=== PATIENT | female | born 1980 | race Two or more races ===

== ENCOUNTER 2021-04-21 05:48 | Inpatient (IN) | payer SELFPAY ==
[~2021-04-21] VITALS: Ht 152.4 cm; Wt 70.2 kg
[2021-04-21] MEDS ORDERED: IV NORMAL SALINE 1000ML BAG 1,000 ML IV ONE (06:15)
[2021-04-21] MEDS ORDERED: ACETAMINOPHEN 500 MG TABLET PO ONE (06:15)
--- NOTE | 2021-04-21 06:41 | ED.ADGEN ---
General Adult EDM: Chief Complaint: ABDOMINAL PAIN HPI: HPI: Patient is a 40 year old female presenting via EMS for right lower quadrant abdominal pain. Patient states she has been having pain for 2 days as well as subjective fevers at home, has not checked temperature. Has had some nausea but no vomiting. Denies any diarrhea. Patient normally has to self cath 3 times a day denies any hematuria or dysuria. Patient is Vietnamese-speaking and with safety attendant line is unclear what her surgical history is. Review of Systems: Review of Systems: All other systems within normal limits except for as noted in the HPI Current Medications: Current Medications Medications (Trade) Dose Ordered Sig/Maura Start Time Stop Time Status Last Admin Dose Admin Acetaminophen (Tylenol) 650 mg PRN Q4HRS PRN 04/21/21 09:30 04/22/21 09:29 Ceftriaxone Sodium (Rocephin) 1 gm 1X ONCE 04/21/21 08:15 04/21/21 08:16 DC 04/21/21 08:20 1 GM Fentanyl Citrate (Fentanyl 2ml Vial) 50 mcg PRN Q1HR PRN 04/21/21 09:30 04/22/21 09:29 Info (CONTRAST GIVEN -- Rx MONITORING) 1 each PRN DAILY PRN 04/21/21 07:30 04/23/21 07:29 Iohexol (Omnipaque 300 Mg/ml) 75 ml 1X ONCE 04/21/21 07:30 04/21/21 07:31 DC 04/21/21 07:38 75 ML Sodium Chloride 1,000 ml @ 100 mls/hr Q10H 04/21/21 09:30 04/22/21 09:29 Allergies: Allergies: Allergies Coded Allergies Type Severity Reaction Last Updated Verified No Known Drug Allergies 04/21/21 No Physical Exam: PE: Constitutional: Well developed, well nourished, no acute distress, non-toxic appearance. [] HENT: Normocephalic, atraumatic, bilateral external ears normal, nose normal. [] Eyes: PERRLA, conjunctiva normal, no discharge. [] Neck: No rigidity, supple, no stridor. [] Cardiovascular: Regular rate and rhythm, brisk cap refill [] Lungs & Thorax: Non labored symmetric respirations, no tachypnea or respiratory distress [] Abdomen: Soft, nondistended, right lower quadrant abdominal tenderness. Skin: Warm, dry, no erythema, no rash. [] Back: Unremarkable Extremities: No deformities, range of motion grossly intact, no lower extremity edema [] Neurologic: Alert and oriented X 3, no focal deficits noted. [] Psychologic: Affect normal, judgement normal, mood normal. [] Current Patient Data: Labs: Laboratory Tests Test 04/21/21 06:35 04/21/21 06:57 04/21/21 07:00 White Blood Count 19.7 x10^3/uL (4.0-11.0) H Red Blood Count 3.98 x10^6/uL (3.50-5.40) Hemoglobin 11.8 g/dL (12.0-15.5) L Hematocrit 34.7 % (36.0-47.0) L Mean Corpuscular Volume 87 fL (79-100) Mean Corpuscular Hemoglobin 30 pg (25-35) Mean Corpuscular Hemoglobin Concent 34 g/dL (31-37) Red Cell Distribution Width 13.1 % (11.5-14.5) Platelet Count 194 x10^3/uL (140-400) Neutrophils (%) (Auto) 84 % (31-73) H Lymphocytes (%) (Auto) 6 % (24-48) L Monocytes (%) (Auto) 10 % (0-9) H Eosinophils (%) (Auto) 0 % (0-3) Basophils (%) (Auto) 0 % (0-3) Neutrophils # (Auto) 16.5 x10^3/uL (1.8-7.7) H Lymphocytes # (Auto) 1.2 x10^3/uL (1.0-4.8) Monocytes # (Auto) 1.9 x10^3/uL (0.0-1.1) H Eosinophils # (Auto) 0.0 x10^3/uL (0.0-0.7) Basophils # (Auto) 0.0 x10^3/uL (0.0-0.2) Segmented Neutrophils % 88 % (35-66) H Lymphocytes % 7 % (24-48) L Monocytes % 5 % (0-10) Dohle Bodies Few Platelet Estimate Adequate (ADEQUATE) Polychromasia Slight Sodium Level 135 mmol/L (136-145) L Potassium Level 3.8 mmol/L (3.5-5.1) Chloride Level 100 mmol/L (98-107) Carbon Dioxide Level 26 mmol/L (21-32) Anion Gap 9 (6-14) Blood Urea Nitrogen 8 mg/dL (7-20) Creatinine 0.9 mg/dL (0.6-1.0) Estimated GFR (Cockcroft-Gault) 69.3 BUN/Creatinine Ratio 9 (6-20) Glucose Level 136 mg/dL (70-99) H Lactic Acid Level 1.1 mmol/L (0.4-2.0) Calcium Level 8.5 mg/dL (8.5-10.1) Phosphorus Level 2.1 mg/dL (2.6-4.7) L Magnesium Level 2.0 mg/dL (1.8-2.4) Total Bilirubin 0.9 mg/dL (0.2-1.0) Aspartate Amino Transferase (AST) 21 U/L (15-37) Alanine Aminotransferase (ALT) 60 U/L (14-59) H Alkaline Phosphatase 71 U/L (46-116) Total Protein 8.0 g/dL (6.4-8.2) Albumin 3.3 g/dL (3.4-5.0) L Albumin/Globulin Ratio 0.7 (1.0-1.7) L Lipase 80 U/L (73-393) Urine Collection Type U cath Urine Color Yellow Urine Clarity Turbid Urine pH 7.5 (<5.0-8.0) Urine Specific [place] 1.015 (1.000-1.030) Urine Protein 100 mg/dL (NEG-TRACE) Urine Glucose (UA) Negative mg/dL (NEG) Urine Ketones (Stick) Negative mg/dL (NEG) Urine Blood Negative (NEG) Urine Nitrite Negative (NEG) Urine Bilirubin Negative (NEG) Urine Urobilinogen Dipstick 0.2 mg/dL (0.2 mg/dL) Urine Leukocyte Esterase Large (NEG) Urine RBC Occ /HPF (0-2) Urine WBC >40 /HPF (0-4) Urine Squamous Epithelial Cells Many /LPF Urine Amorphous Sediment Present /HPF Urine Bacteria Many /HPF (0-FEW) Urine Mucus Slight /LPF POC Urine HCG, Qualitative Hcg negative (Negative) Laboratory Tests 04/21/21 06:35 Laboratory Tests 04/21/21 06:35 Vital Signs: Vital Signs Date Time Temp Pulse Resp B/P (MAP) Pulse Ox O2 Delivery O2 Flow Rate FiO2 04/21/21 05:58 102.3 114 18 115/57 96 Room Air 102.3 EKG: EKG: [] Heart Score: C/O Chest Pain: No Risk Factors: Risk Factors: DM, Current or recent (<one month) smoker, HTN, HLP, family history of CAD, obesity. Risk Scores: Score 0 - 3: 2.5% MACE over next 6 weeks - Discharge Home Score 4 - 6: 20.3% MACE over next 6 weeks - Admit for Clinical Observation Score 7 - 10: 72.7% MACE over next 6 weeks - Early Invasive Strategies Radiology/Procedures: Radiology/Procedures: [][facility] [address] [place] [address] IMAGING REPORT Signed PATIENT: HYACINTH SMITH ACCOUNT: [id number] : 1980 LOCATION: ER AGE: 40 SEX: F EXAM STATUS: REG ER ORD. PHYSICIAN: TERESA SEBASTIAN MD REASON: RLQ pain PROCEDURE: CT ABD PELV W/ IV CONTRST ONLY EXAMINATION: CT abdomen and pelvis with IV contrast. INDICATION:40 years, Female, right lower quadrant abdominal pain. TECHNIQUE: Axial CT images of the abdomen and pelvis were obtained. Coronal and sagittal reformatted performed. COMPARISON: None. Exposure: One or more of the following individualized dose reduction techniques were utilized for this examination: 1. Automated exposure control 2. Adjustment of the mA and/or kV according to patient size 3. Use of iterative reconstruction technique. FINDINGS: LOWER CHEST: Unremarkable ABDOMEN/PELVIS: Diffuse hepatic steatosis. No suspicious focal hepatic lesion. Unremarkable spleen, pancreas, gallbladder and biliary ducts. No adrenal nodule. Left kidney is absent. Heterogeneous enhancement of the lower pole right kidney with prominent pelvicalyceal system and ureter to the level of right lower q uadrant where surgical clips present. There is a diffuse thickened enhanced urothelia of the right renal pelvis and ureter with significant perinephric and periureteric fat stranding. No obstructing calculus identified. Diffuse thickened trabeculated urinary bladder wall with multiple diverticula. Normal- appearing uterus is not identified. There is a large cystic structure seen in the expected location of the uterus containing 2 large stones measuring up to 4.0 cm. No significant perivesicular fat stranding. No bowel dilatation or wall thickening. Borderline thickened appendix with hyperenhancing mucosa, measures up to 6 mm. Mesenteric arteries and portal vein are patent. No pneumoperitoneum or ascites. No lymphadenopathy in the abdomen or pelvis by size criteria. Uterus is not visualized. MUSCULOSKELETAL: No acute osseous process. IMPRESSION: 1. Acute uncomplicated right pyelonephritis and ureteritis; prominent pelvicalyceal system and ureter to the level of right lower quadrant where surgical clips present, without obstructing calculus. Correlation with urinalysis is recommended. 6 2. Thickened trabeculated urinary bladder wall with multiple diverticula. 3. Normal-appearing uterus is not visualized. There is a large cystic structure seen in the expected location of the uterus containing 2 large stones measuring up to 4.0 cm. Findings favor bladder diverticulum versus less likely fluid- filled distended endometrium with uterine distortion. 4. Left kidney is absent. 5. Borderline thickened appendix with hyperenhancing mucosa, favors reactive etiology versus less likely acute appendicitis. Clinical correlation is advised. 6. Diffuse hepatic steatosis. Electronically signed by: Gordon Almaguer MD (04/21/2021 8:03 AM) [facility] DICTATED and SIGNED BY: GORDON ALMAGUER MD DATE: 04/21/21 [id number] 0 Course & Med Decision Making: Course & Med Decision Making Discussed with hospitalist, okay to admit for pyelonephritis and solitary kidney. No obstructing calculi. Discussed with radiologist, inflammation of the appendix is likely reactive, but patient does have pain in the right lower quadrant. Dragon Disclaimer: Dragon Disclaimer: This electronic medical record was generated, in whole or in part, using a voice recognition dictation system. Departure Departure Impression: Primary Impression: Pyelonephritis Disposition: ADMITTED INPATIENT Admitting [facility] Condition: STABLE TERESA SEBASTIAN MD Apr 21, 2021 06:41
[2021-04-21 06:56] LABS: BASO % 0 % (0-3); EOS % 0 % (0-3); HEMATOCRIT 34.7 % (36.0-47.0); HEMOGLOBIN 11.8 g/dL (12.0-15.5); LYMPH # 1.2 x10^3/uL (1.0-4.8); LYMPH % 6 % (24-48); MEAN CORPUSCULAR HEMOGLOBIN 30 pg (25-35); MEAN CORPUSCULAR HGB CONC 34 g/dL (31-37); MEAN CORPUSCULAR VOLUME 87 fL (79-100); MONO # 1.9 x10^3/uL (0.0-1.1); MONO % 10 % (0-9); NEUT # 16.5 x10^3/uL (1.8-7.7); NEUT % 84 % (31-73); PLATELET COUNT 194 x10^3/uL (140-400); RED BLOOD COUNT 3.98 x10^6/uL (3.50-5.40); RED CELL DISTRIBUTION WIDTH 13.1 % (11.5-14.5); WHITE BLOOD COUNT 19.7 x10^3/uL (4.0-11.0)
[2021-04-21 07:09] LABS: CALCIUM 8.5 mg/dL (8.5-10.1); CREATININE 0.9 mg/dL (0.6-1.0); GFR 69.3; POTASSIUM 3.8 mmol/L (3.5-5.1)
[2021-04-21 07:18] LABS: BILIRUBIN,URINE NEGATIVE (NEG); CLARITY,URINE TURBID; COLOR,URINE YELLOW; NITRITE,URINE NEGATIVE (NEG); PH,URINE 7.5 (<5.0-8.0); PROTEIN,URINE 100 mg/dL (NEG-TRACE); UROBILINOGEN,URINE 0.2 mg/dL (0.2 mg/dL)
[2021-04-21 07:25] LABS: ALBUMIN 3.3 g/dL (3.4-5.0); ALBUMIN/GLOBULIN RATIO 0.7 (1.0-1.7); PHOSPHORUS 2.1 mg/dL (2.6-4.7); TOTAL BILIRUBIN 0.9 mg/dL (0.2-1.0)
[2021-04-21] MEDS ORDERED: CONTRAST GIVEN. MC PRN (07:30)
[2021-04-21] MEDS ORDERED: IOHEXOL 300 MG/ML 100ML VIAL. IV ONE (07:30)
[2021-04-21 07:47] LABS: BACTERIA,URINE MANY /HPF (0-FEW); RBC,URINE OCC /HPF (0-2); WBC,URINE >40 /HPF (0-4)
[2021-04-21 07:48] LABS: AMORPHOUS SEDIMENT,UR PRESENT /HPF
--- NOTE | 2021-04-21 08:06 | RAD ---
EXAMINATION: CT abdomen and pelvis with IV contrast. INDICATION:40 years, Female, right lower quadrant abdominal pain. TECHNIQUE: Axial CT images of the abdomen and pelvis were obtained. Coronal and sagittal reformatted performed. COMPARISON: None. Exposure: One or more of the following individualized dose reduction techniques were utilized for thi s examination: 1. Automated exposure control 2. Adjustment of the mA and/or kV according to patient size 3. Use of iterative reconstruction technique. FINDINGS: LOWER CHEST: Unremarkable ABDOMEN/PELVIS: Diffuse hepatic steatosis. No suspicious focal hepatic lesion. Unremarkable spleen, pancreas, gallbla dder and biliary ducts. No adrenal nodule. Left kidney is absent. Heterogeneous enhancement of the lower pole right kidney with prominent pelvic alyceal system and ureter to the level of right lower quadrant where surgical clips present. There is a diffuse thickened enhanced urothelia of the right renal pelvis and ureter with significant perinep hric and periureteric fat stranding. No obstructing calculus identified. Diffuse thickened trabeculat ed urinary bladder wall with multiple diverticula. Normal-appearing uterus is not identified. There i s a large cystic structure seen in the expected location of the uterus containing 2 large stones norma uring up to 4.0 cm. No significant perivesicular fat stranding. No bowel dilatation or wall thickening. Borderline thickened appendix with hyperenhancing mucosa, hussain sures up to 6 mm. Mesenteric arteries and portal vein are patent. No pneumoperitoneum or ascites. No lymphadenopathy in the abdomen or pelvis by size criteria. Uterus is not visualized. MUSCULOSKELETAL: No acute osseous process. IMPRESSION: 1. Acute uncomplicated right pyelonephritis and ureteritis; prominent pelvicalyceal system and ureter to the level of right lower quadrant where surgical clips present, without obstructing calculus. Cor relation with urinalysis is recommended. 6 2. Thickened trabeculated urinary bladder wall with multiple diverticula. 3. Normal-appearing uterus is not visualized. There is a large cystic structure seen in the expected location of the uterus containing 2 large stones measuring up to 4.0 cm. Findings favor bladder diver ticulum versus less likely fluid-filled distended endometrium with uterine distortion. 4. Left kidney is absent. 5. Borderline thickened appendix with hyperenhancing mucosa, favors reactive etiology versus less lik eber acute appendicitis. Clinical correlation is advised. 6. Diffuse hepatic steatosis. Electronically signed by: Letty Almaguer MD (04/21/2021 8:03 AM) [facility] [place]
[2021-04-21] MEDS ORDERED: cefTRIAXone IV Push 1 GM VIAL. IVP ONE (08:15)
[2021-04-21 09:16] LABS: % LYMPHS 7 % (24-48); % MONOS 5 % (0-10); % SEGS 88 % (35-66); PLT ESTIMATE ADEQUATE (ADEQUATE)
[2021-04-21 09:17] LABS: POLYCHROMASIA SLIGHT
[2021-04-21] MEDS: fentaNYL PF VIAL 100 MCG/2 ML VIAL IVP PRN ×3 (10:48→19:28)
[2021-04-21] MEDS: IV NORMAL SALINE 1000ML BAG 1,000 ML IV SCH ×2 (10:49→19:30)
[2021-04-21] MEDS: ACETAMINOPHEN 325 MG TABLET. PO PRN ×2 (13:22→19:28)
[2021-04-21] MEDS: ONDANSETRON PF 4 MG/2 ML VIAL. IVP PRN (13:22)
--- NOTE | 2021-04-21 13:42 | HP ---
ADMIT DATE: 04/21/2021 CHIEF COMPLAINT: Abdominal pain. HISTORY OF PRESENT ILLNESS: The patient is a pleasant 40-year-old female who presented to the ER today with abdominal pain. She came in by EMS. She rates her symptoms at 9/10 that has been occurring for several days. She took some [id number] medicines, but that did not help. While in the ER, we noticed that she has got pyelonephritis. She also has 1 kidney and some abnormal imaging on her bladder/uterus. It appears that she has got diverticula. She also states she self-catheterizes herself. The patient has been admitted for further evaluation. PAST MEDICAL HISTORY: Dystonic bladder, UTIs. She has 1 kidney, I am not sure if it was surgically resected or if this was congenital. ALLERGIES: None. FAMILY HISTORY: Noncontributory. SOCIAL HISTORY: She does not drink, smoke or take drugs. MEDICATIONS: Reviewed, please refer to the MRAD. REVIEW OF SYSTEMS: GENERAL: No history of weight change, weakness or fevers. SKIN: No bruising, hair changes or rashes. EYES: No blurred, double or loss of vision. NOSE AND THROAT: No history of nosebleeds, hoarseness or sore throat. HEART: No history of palpitations, chest pain or shortness of breath on exertion. LUNGS: Denies cough, hemoptysis, wheezing or shortness of breath. GASTROINTESTINAL: She complains of abdominal pain. GENITOURINARY: No history of frequency, urgency, hesitancy or nocturia. NEUROLOGIC: Denies history of numbness, tingling, tremor or weakness. PSYCHIATRIC: No history of panic, anxiety or depression. ENDOCRINE: No history of heat or cold intolerance, polyuria or polydipsia. EXTREMITIES: Denies muscle weakness, joint pain, pain on walking or stiffness. PHYSICAL EXAMINATION: VITALS: Within normal limits and are stable. GENERAL: No apparent distress. Alert and oriented. HEENT: Normal cephalic atraumatic, external auditory canals are patent. Eyes: Extraocular muscles are intact, pupils are equally round and reactive to light and accommodation. MUSCULOSKELETAL: Well developed, well nourished, good range of motion. ENDOCRINE: No thyromegaly was palpated. LYMPHATICS: No cervical chain or axillary nodes were noted. HEMATOPOIETIC: No bruising. NECK: Supple, no JVD, no thyromegaly was noted. LUNGS: Clear to auscultation in all lung paulino without rhonchi or wheezing. HEART: RRR, S1, S2 present. Peripheral pulses intact, no obvious murmurs were noted. ABDOMEN: Soft, nontender. Positive bowel sounds no organomegaly, normal bowel sounds. EXTREMITIES: Without any cyanosis, clubbing, or edema. Pedal pulses intact, Homans sign is negative. NEUROLOGIC: Normal speech, normal tone. A and O x 3, moves all extremities, no obvious focal deficits. PSYCHIATRIC: Normal affect, normal mood. Stable. SKIN: No ulcerations or rashes, good skin turgor, no jaundice. VASCULAR: Good capillary refill, neurovascular bundle appears to be intact. LABORATORY DATA: White count is 20. Electrolytes normal other than a sodium of 135. Glucose is 136. CT of the abdomen shows pyelonephritis and urethritis. There are also some surgical clips present. Thickened trabeculated urinary bladder with multiple diverticula. Large cystic structure in the location of the uterus with 2 large stones. Left kidney absent. Borderline thickened appendix. Hepatic steatosis. ASSESSMENT AND PLAN: Pyelonephritis and abnormal imaging of the abdomen. The patient will be admitted. We will give her IV antibiotics, IV fluids, home meds. DVT prophylaxis. Full code. Trend labs. If she does not improve in a day or 2, we will make further diagnostic and therapeutic recommendations. KAREN/MARTIN DR: Juan J TID: [id number]
--- NOTE | 2021-04-21 19:15 | NUR ---
Patient requested friend stay the night to be able to translate for her. NS notified and approved.
[2021-04-21 19:30] VITALS: BP 135/63
[2021-04-21 21:53] VITALS: BP 135/63
[2021-04-21 23:00] VITALS: BP 95/58
[2021-04-21] MEDS ORDERED: ACET325T9 PO (23:16)
[2021-04-22] VITALS (8 sets, daily range): BP systolic 97–156; BP diastolic 51–72
[2021-04-22] MEDS: IV NORMAL SALINE 1000ML BAG 1,000 ML IV SCH ×4 (00:15→14:58)
--- NOTE | 2021-04-22 04:28 | NUR ---
Patient vitals changed, sepsis screen reevaluated and triggered. Call to ICU and spoke with Gordy Higginbotham RN. Lactic acid and Blood cultures x 2 ordered per protocol
[2021-04-22] MEDS: ACETAMINOPHEN 325 MG TABLET. PO PRN ×3 (04:42→21:02)
[2021-04-22 05:05] LABS: BASO % 0 % (0-3); EOS % 0 % (0-3); HEMATOCRIT 32.1 % (36.0-47.0); HEMOGLOBIN 10.9 g/dL (12.0-15.5); LYMPH # 1.2 x10^3/uL (1.0-4.8); LYMPH % 10 % (24-48); MEAN CORPUSCULAR HEMOGLOBIN 30 pg (25-35); MEAN CORPUSCULAR HGB CONC 34 g/dL (31-37); MEAN CORPUSCULAR VOLUME 88 fL (79-100); MONO # 1.2 x10^3/uL (0.0-1.1); MONO % 10 % (0-9); NEUT # 9.8 x10^3/uL (1.8-7.7); NEUT % 80 % (31-73); PLATELET COUNT 182 x10^3/uL (140-400); RED BLOOD COUNT 3.66 x10^6/uL (3.50-5.40); RED CELL DISTRIBUTION WIDTH 13.3 % (11.5-14.5); WHITE BLOOD COUNT 12.3 x10^3/uL (4.0-11.0)
[2021-04-22 06:22] LABS: CALCIUM 8.5 mg/dL (8.5-10.1); CREATININE 0.8 mg/dL (0.6-1.0); GFR 79.4; POTASSIUM 3.9 mmol/L (3.5-5.1)
--- NOTE | 2021-04-22 08:53 | PDOC2 ---
ALYSSA CLARK CASTING ASSOCIATE 04/22/21 0853: CONSULT Date of Consult Date of Consult DATE: 04/22/21 TIME: 08:42 Reason for Consult Reason for Consult: rule out appendicitis Referring Physician Referring Physician: ER Identification/Chief Complaint Chief Complaint abdominal pain Source Source: Chart review, Patient History of Present Illness Reason for Visit: abdominal pain, chills, fevers since monday. congential defect, one kidney, nerve issues, has been straight cath self for many years. Denies frequent UTI. 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 Past Surgical History Past Surgical History: Hysterectomy Family History Family History: Other (noncontributory to current illness ) Social History No ALCOHOL: rare Drugs: None Lives: Alone Current Problem List Problem List Problems Medical Problems: (1) Pyelonephritis Status: Acute Current Medications Current Medications Current Medications Sodium Chloride 1,000 ml @ 1,000 mls/hr 1X ONCE IV Last administered on 04/21/21at 07:40; Start 04/21/21 at 06:15; Stop 04/21/21 at 07:22; Status DC Acetaminophen (Tylenol) 1,000 mg 1X ONCE PO Last administered on 04/21/21at 07:39; Start 04/21/21 at 06:15; Stop 04/21/21 at 07:22; Status DC Iohexol (Omnipaque 300 Mg/ml) 75 ml 1X ONCE IV Last administered on 04/21/21at 07:38; Start 04/21/21 at 07:30; Stop 04/21/21 at 07:31; Status DC Info (CONTRAST GIVEN -- Rx MONITORING) 1 each PRN DAILY PRN MC SEE COMMENTS; Start 04/21/21 at 07:30; Stop 04/23/21 at 07:29 Ceftriaxone Sodium (Rocephin) 1 gm 1X ONCE IVP Last administered on 04/21/21at 08:20; Start 04/21/21 at 08:15; Stop 04/21/21 at 08:16; Status DC Fentanyl Citrate (Fentanyl 2ml Vial) 50 mcg PRN Q1HR PRN IVP PAIN Last administered on 04/21/21at 19:28; Start 04/21/21 at 09:30; Stop 04/22/21 at 09:29 Sodium Chloride 1,000 ml @ 100 mls/hr Q10H IV Last administered on 04/21/21at 10:49; Start 04/21/21 at 09:30; Stop 04/22/21 at 09:29 Acetaminophen (Tylenol) 650 mg PRN Q4HRS PRN PO FEVER > 100.3'F Last administered on 04/22/21at 04:42; Start 04/21/21 at 09:30; Stop 04/22/21 at 09:29 Ceftriaxone Sodium (Rocephin) 1 gm Q24H IVP ; Start 04/22/21 at 09:00 Sodium Chloride 1,000 ml @ 75 mls/hr [id number] IV Last administered on 04/22/21at 00:15; Start 04/21/21 at 12:00 Ondansetron HCl (Zofran) 4 mg PRN Q8HRS PRN IVP NAUSEA/VOMITING Last administered on 04/21/21at 13:22; Start 04/21/21 at 13:15 Active Scripts Active Reported Tylenol (Acetaminophen) 325 Mg Tablet 1-2 Tab PO QID Allergies Allergies: Coded Allergies: No Known Drug Allergies (Unverified , 04/21/21) ROS General: YES: Chills, Fatigue PSYCHOLOGICAL ROS: No: Anxiety, Depression Eyes: No Blurry vision, No Double vision HEENT: No: Heacaches, Sore Throat Hematological and Lymphatic: No: Bleeding Problems, Blood Clots Respiratory: No: Cough, Shortness of breath Cardiovascular: No Chest Pain, No Palpitations Gastrointestinal: No Nausea, No Vomiting Genitourinary: YES Other (st cath tid ); No Hematuria Musculoskeletal: No Joint Pain, No Muscle Pain Neurological: No Impaired Coord/balance, No Numbness/Tingling Skin: No Pruritus, No Rash Physical Exam General: Alert, Oriented X3, Cooperative HEENT: Atraumatic, PERRLA Lungs: Clear to auscultation, Normal air movement Heart: Normal S1, Normal S2, Other (tachy) Abdomen: Soft, Other (TTP RLQ) Extremities: No clubbing, No cyanosis Skin: No rashes, No breakdown Neuro: Normal gait, Normal speech Psych/Mental Status: Mental status NL, Mood NL MUSCULOSKELETAL: No deformity, No swelling Vitals VITALS Vital Signs Date Time Temp Pulse Resp B/P (MAP) Pulse Ox O2 Delivery O2 Flow Rate FiO2 04/22/21 03:45 103.1 92 16 130/71 (90) 92 Room Air 103.1 Labs Labs Laboratory Tests Test 04/21/21 06:35 04/21/21 06:57 04/21/21 07:00 04/22/21 04:50 White Blood Count 19.7 x10^3/uL (4.0-11.0) 12.3 x10^3/uL (4.0-11.0) Red Blood Count 3.98 x10^6/uL (3.50-5.40) 3.66 x10^6/uL (3.50-5.40) Hemoglobin 11.8 g/dL (12.0-15.5) 10.9 g/dL (12.0-15.5) Hematocrit 34.7 % (36.0-47.0) 32.1 % (36.0-47.0) Mean Corpuscular Volume 87 fL (79-100) 88 fL (79-100) Mean Corpuscular Hemoglobin 30 pg (25-35) 30 pg (25-35) Mean Corpuscular Hemoglobin Concent 34 g/dL (31-37) 34 g/dL (31-37) Red Cell Distribution Width 13.1 % (11.5-14.5) 13.3 % (11.5-14.5) Platelet Count 194 x10^3/uL (140-400) 182 x10^3/uL (140-400) Neutrophils (%) (Auto) 84 % (31-73) 80 % (31-73) Lymphocytes (%) (Auto) 6 % (24-48) 10 % (24-48) Monocytes (%) (Auto) 10 % (0-9) 10 % (0-9) Eosinophils (%) (Auto) 0 % (0-3) 0 % (0-3) Basophils (%) (Auto) 0 % (0-3) 0 % (0-3) Neutrophils # (Auto) 16.5 x10^3/uL (1.8-7.7) 9.8 x10^3/uL (1.8-7.7) Lymphocytes # (Auto) 1.2 x10^3/uL (1.0-4.8) 1.2 x10^3/uL (1.0-4.8) Monocytes # (Auto) 1.9 x10^3/uL (0.0-1.1) 1.2 x10^3/uL (0.0-1.1) Eosinophils # (Auto) 0.0 x10^3/uL (0.0-0.7) 0.0 x10^3/uL (0.0-0.7) Basophils # (Auto) 0.0 x10^3/uL (0.0-0.2) 0.0 x10^3/uL (0.0-0.2) Segmented Neutrophils % 88 % (35-66) Lymphocytes % 7 % (24-48) Monocytes % 5 % (0-10) Dohle Bodies Few Platelet Estimate Adequate (ADEQUATE) Polychromasia Slight Sodium Level 135 mmol/L (136-145) 139 mmol/L (136-145) Potassium Level 3.8 mmol/L (3.5-5.1) 3.9 mmol/L (3.5-5.1) Chloride Level 100 mmol/L (98-107) 106 mmol/L (98-107) Carbon Dioxide Level 26 mmol/L (21-32) 24 mmol/L (21-32) Anion Gap 9 (6-14) 9 (6-14) Blood Urea Nitrogen 8 mg/dL (7-20) 6 mg/dL (7-20) Creatinine 0.9 mg/dL (0.6-1.0) 0.8 mg/dL (0.6-1.0) Estimated GFR (Cockcroft-Gault) 69.3 79.4 BUN/Creatinine Ratio 9 (6-20) Glucose Level 136 mg/dL (70-99) 107 mg/dL (70-99) Lactic Acid Level 1.1 mmol/L (0.4-2.0) Calcium Level 8.5 mg/dL (8.5-10.1) 8.5 mg/dL (8.5-10.1) Phosphorus Level 2.1 mg/dL (2.6-4.7) Magnesium Level 2.0 mg/dL (1.8-2.4) Total Bilirubin 0.9 mg/dL (0.2-1.0) Aspartate Amino Transf (AST/SGOT) 21 U/L (15-37) Alanine Aminotransferase (ALT/SGPT) 60 U/L (14-59) Alkaline Phosphatase 71 U/L (46-116) Total Protein 8.0 g/dL (6.4-8.2) Albumin 3.3 g/dL (3.4-5.0) Albumin/Globulin Ratio 0.7 (1.0-1.7) Lipase 80 U/L (73-393) SARS-CoV-2 RNA (BARBARA) Negative (Negative) Urine Collection Type U cath Urine Color Yellow Urine Clarity Turbid Urine pH 7.5 (<5.0-8.0) Urine Specific [place] 1.015 (1.000-1.030) Urine Protein 100 mg/dL (NEG-TRACE) Urine Glucose (UA) Negative mg/dL (NEG) Urine Ketones (Stick) Negative mg/dL (NEG) Urine Blood Negative (NEG) Urine Nitrite Negative (NEG) Urine Bilirubin Negative (NEG) Urine Urobilinogen Dipstick 0.2 mg/dL (0.2 mg/dL) Urine Leukocyte Esterase Large (NEG) Urine RBC Occ /HPF (0-2) Urine WBC >40 /HPF (0-4) Urine Squamous Epithelial Cells Many /LPF Urine Amorphous Sediment Present /HPF Urine Bacteria Many /HPF (0-FEW) Urine Mucus Slight /LPF Bedside Urine HCG, Qualitative Hcg negative (Negative) Laboratory Tests Test 04/22/21 04:50 White Blood Count 12.3 x10^3/uL (4.0-11.0) Red Blood Count 3.66 x10^6/uL (3.50-5.40) Hemoglobin 10.9 g/dL (12.0-15.5) Hematocrit 32.1 % (36.0-47.0) Mean Corpuscular Volume 88 fL (79-100) Mean Corpuscular Hemoglobin 30 pg (25-35) Mean Corpuscular Hemoglobin Concent 34 g/dL (31-37) Red Cell Distribution Width 13.3 % (11.5-14.5) Platelet Count 182 x10^3/uL (140-400) Neutrophils (%) (Auto) 80 % (31-73) Lymphocytes (%) (Auto) 10 % (24-48) Monocytes (%) (Auto) 10 % (0-9) Eosinophils (%) (Auto) 0 % (0-3) Basophils (%) (Auto) 0 % (0-3) Neutrophils # (Auto) 9.8 x10^3/uL (1.8-7.7) Lymphocytes # (Auto) 1.2 x10^3/uL (1.0-4.8) Monocytes # (Auto) 1.2 x10^3/uL (0.0-1.1) Eosinophils # (Auto) 0.0 x10^3/uL (0.0-0.7) Basophils # (Auto) 0.0 x10^3/uL (0.0-0.2) Sodium Level 139 mmol/L (136-145) Potassium Level 3.9 mmol/L (3.5-5.1) Chloride Level 106 mmol/L (98-107) Carbon Dioxide Level 24 mmol/L (21-32) Anion Gap 9 (6-14) Blood Urea Nitrogen 6 mg/dL (7-20) Creatinine 0.8 mg/dL (0.6-1.0) Estimated GFR (Cockcroft-Gault) 79.4 Glucose Level 107 mg/dL (70-99) Calcium Level 8.5 mg/dL (8.5-10.1) Assessment/Plan Assessment/Plan Acute uncomplicated right pyelonephritis and ureteritis suspect appendix findings are reactive to above continue medical management no surgical plans unusual ct with cystic mass in uterus area??--consider COMMUNITY DEVELOPMENT DIRECTOR eval ROSALINDA SON MD 04/22/21 1316: CONSULT Assessment/Plan Assessment/Plan Pt seen and examined. Agree with Ms. Clark's note Pt with min RLQ abd pain abd soft, min TTP agree with abx and supportive care, no surgical plans. Low suspicion of appendicitis. Thanks for consult! ALYSSA CLARK APRN Apr 22, 2021 08:53 ROSALINDA SON MD Apr 22, 2021 13:16
--- NOTE | 2021-04-22 10:44 | NUR ---
SW following. Discussed with RN, pt from home with family, room air, regular diet, COVID-19 negative. IV abx. Surgery following. SW will continue to follow.
[2021-04-22] MEDS: cefTRIAXone IV Push 1 GM VIAL. IVP SCH (11:03)
--- NOTE | 2021-04-22 12:37 | NUR ---
Consult to Dr. Bray called, call returned from office staff stating not client onboarding analyst. Consult called to Dr. Chris
--- NOTE | 2021-04-22 13:55 | PDOC ---
[facility] PROGRESS NOTE Date of Service DOS: DATE: 04/22/21 TIME: 13:48 Chief Complaint Chief Complaint Acute right pyelonephritis Multiple diverticuli the urinary bladder 2 large cystic stones measuring up to 4 cm. 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 She came in by EMS. She rates her symptoms at 9/10 that has been occurring for several days. She took some [id number]-[id number] medicines, but that did not help. While in the ER, we noticed that she has got pyelonephritis. She also has 1 kidney and some abnormal imaging on her bladder/uterus. It appears that she has got diverticula. She also states she self-catheterizes herself. The patient has been admitted for further evaluation. 04/22/2021 No acute events overnight. Pain is a little bit better stated by the patient. She did have some questions regarding the giovanna that her left with her that was okay. Is explained to her that this is likely related to her clips from her previous surgery. However, after reviewing the CT imaging it was unclear whether the patient did have a hysterectomy because the results did show that there was cystic masses what appears to be in the area where the uterus is and also some diverticuli in the bladder that might be related to her presentation. Regardless, we are continue with empiric IV antibiotics and awaiting urine cultures. We will continue to watch closely and follow-up with sensitivities and speciation's of the results. Vitals/I&O Vitals/I&O: Vital Signs Date Time Temp Pulse Resp B/P (MAP) Pulse Ox O2 Delivery O2 Flow Rate FiO2 04/22/21 12:30 98.3 81 97/64 (75) 94 Room Air 98.3 04/22/21 12:25 22 I & O 04/21/21 04/21/21 04/22/21 15:00 23:00 07:00 Intake Total 100 ml 1100 ml Output Total 0 ml Balance 100 ml 1100 ml Physical Exam General: Alert, Oriented X3, Cooperative Heart: Normal S1, Normal S2, Other (tachy) Abdomen: Soft, Other (TTP RLQ) Extremities: No clubbing, No cyanosis Skin: No rashes, No breakdown Labs Labs: Laboratory Tests Test 04/22/21 04:50 04/22/21 10:20 White Blood Count 12.3 x10^3/uL (4.0-11.0) Red Blood Count 3.66 x10^6/uL (3.50-5.40) Hemoglobin 10.9 g/dL (12.0-15.5) Hematocrit 32.1 % (36.0-47.0) Mean Corpuscular Volume 88 fL (79-100) Mean Corpuscular Hemoglobin 30 pg (25-35) Mean Corpuscular Hemoglobin Concent 34 g/dL (31-37) Red Cell Distribution Width 13.3 % (11.5-14.5) Platelet Count 182 x10^3/uL (140-400) Neutrophils (%) (Auto) 80 % (31-73) Lymphocytes (%) (Auto) 10 % (24-48) Monocytes (%) (Auto) 10 % (0-9) Eosinophils (%) (Auto) 0 % (0-3) Basophils (%) (Auto) 0 % (0-3) Neutrophils # (Auto) 9.8 x10^3/uL (1.8-7.7) Lymphocytes # (Auto) 1.2 x10^3/uL (1.0-4.8) Monocytes # (Auto) 1.2 x10^3/uL (0.0-1.1) Eosinophils # (Auto) 0.0 x10^3/uL (0.0-0.7) Basophils # (Auto) 0.0 x10^3/uL (0.0-0.2) Sodium Level 139 mmol/L (136-145) Potassium Level 3.9 mmol/L (3.5-5.1) Chloride Level 106 mmol/L (98-107) Carbon Dioxide Level 24 mmol/L (21-32) Anion Gap 9 (6-14) Blood Urea Nitrogen 6 mg/dL (7-20) Creatinine 0.8 mg/dL (0.6-1.0) Estimated GFR (Cockcroft-Gault) 79.4 Glucose Level 107 mg/dL (70-99) Calcium Level 8.5 mg/dL (8.5-10.1) Lactic Acid Level 0.7 mmol/L (0.4-2.0) Assessment and Plan Assessmemt and Plan Problems Medical Problems: (1) Pyelonephritis Status: Acute Comment Review of Relevant I have reviewed the following items meredith (where applicable) has been applied. Medications: Current Medications Medications (Trade) Dose Ordered Sig/Maura Route PRN Reason Start Time Stop Time Status Last Admin Dose Admin Ceftriaxone Sodium (Rocephin) 1 gm Q24H IVP 04/22/21 09:00 04/22/21 11:03 Justifications for Admission Other Justification PAULINE ALFONSO MD Apr 22, 2021 13:55
--- NOTE | 2021-04-22 15:42 | CONS ---
DATE OF CONSULTATION: 04/22/2021 HISTORY OF PRESENT ILLNESS: This patient is a 40-year-old [place] lady who is being admitted to the hospital with a history of fever and getting treatment for pyelonephritis and the patient is seen in consultation for pelvic discomfort and pain and on questioning the patient, she says she has had 1 and had a , also history of hysterectomy and removal of tubes and ovaries before and at the present time, her pain is in the upper right quadrant as well as the lumbar area. PHYSICAL EXAMINATION: ABDOMEN: Feels soft. PELVIC: Shows external genitalia being normal and on bimanual exam, no adnexal masses are palpable. There is discomfort in the midline. Other than that, no vaginal bleeding, no other problems noted. IMPRESSION: Pyelonephritis, bladder stones seen in the CT scan. RECOMMENDATIONS: The patient is going to need a consultation from the urologist for cystoscopy as well as treatment for the bladder stones and this could be precipitating the pyelonephritis for the patient. Thank you for giving me the opportunity to participate in the care and management of this patient. [facility] [place]: Fidel TID: [id number]
[2021-04-22] MEDS: LACTOBACILLUS RHAMNOSUS GG 1 CAPSULE. PO SCH (21:02)
[2021-04-23] MEDS: IV NORMAL SALINE 1000ML BAG 1,000 ML IV SCH ×2 (02:48→15:52)
[2021-04-23 03:00] VITALS: BP 113/67
[2021-04-23] MEDS: LACTOBACILLUS RHAMNOSUS GG 1 CAPSULE. PO SCH ×2 (09:06→21:35)
[2021-04-23] MEDS: ACETAMINOPHEN 325 MG TABLET. PO PRN (09:06)
[2021-04-23] MEDS: cefTRIAXone IV Push 1 GM VIAL. IVP SCH (09:09)
--- NOTE | 2021-04-23 09:53 | PDOC ---
ALYSSA CLARK COOK HELPER MEAT 04/23/21 0953: SURGICAL PROGRESS NOTE DATE: 04/23/21 TIME: 09:51 Subjective pain is 8, a little better Vital Signs Vital Signs Date Time Temp Pulse Resp B/P (MAP) Pulse Ox O2 Delivery O2 Flow Rate FiO2 04/23/21 03:00 98.5 78 18 113/67 (82) 96 Room Air 98.5 I&O Intake and Output 04/23/21 06:59 # Voids 2 General: Alert, Oriented X3, Cooperative Abdomen: Soft, Other (mild ttp RLQ) Labs Laboratory Tests Test 04/22/21 04:50 04/22/21 10:20 White Blood Count 12.3 x10^3/uL (4.0-11.0) Red Blood Count 3.66 x10^6/uL (3.50-5.40) Hemoglobin 10.9 g/dL (12.0-15.5) Hematocrit 32.1 % (36.0-47.0) Mean Corpuscular Volume 88 fL (79-100) Mean Corpuscular Hemoglobin 30 pg (25-35) Mean Corpuscular Hemoglobin Concent 34 g/dL (31-37) Red Cell Distribution Width 13.3 % (11.5-14.5) Platelet Count 182 x10^3/uL (140-400) Neutrophils (%) (Auto) 80 % (31-73) Lymphocytes (%) (Auto) 10 % (24-48) Monocytes (%) (Auto) 10 % (0-9) Eosinophils (%) (Auto) 0 % (0-3) Basophils (%) (Auto) 0 % (0-3) Neutrophils # (Auto) 9.8 x10^3/uL (1.8-7.7) Lymphocytes # (Auto) 1.2 x10^3/uL (1.0-4.8) Monocytes # (Auto) 1.2 x10^3/uL (0.0-1.1) Eosinophils # (Auto) 0.0 x10^3/uL (0.0-0.7) Basophils # (Auto) 0.0 x10^3/uL (0.0-0.2) Sodium Level 139 mmol/L (136-145) Potassium Level 3.9 mmol/L (3.5-5.1) Chloride Level 106 mmol/L (98-107) Carbon Dioxide Level 24 mmol/L (21-32) Anion Gap 9 (6-14) Blood Urea Nitrogen 6 mg/dL (7-20) Creatinine 0.8 mg/dL (0.6-1.0) Estimated GFR (Cockcroft-Gault) 79.4 Glucose Level 107 mg/dL (70-99) Calcium Level 8.5 mg/dL (8.5-10.1) Lactic Acid Level 0.7 mmol/L (0.4-2.0) Laboratory Tests Test 04/22/21 10:20 Lactic Acid Level 0.7 mmol/L (0.4-2.0) Problem List Problems Medical Problems: (1) Pyelonephritis Status: Acute Assessment/Plan labs and fevers improved rec urology FU very low suspicion for appendicitis will sign off, please call if additional assistance needed Justicifation of Admission Dx: Justifications for Admission: Justification of Admission Dx: Yes Comments: uti ROSALINDA SON MD 04/23/21 1441: SURGICAL PROGRESS NOTE Assessment/Plan Pt seen and examined. Agree with Ms. Clark's note Pt reports min pain min TTP cont abx will sign off, but please call for questions. ALYSSA CLARK APRN Apr 23, 2021 09:53 ROSALINDA SON MD Apr 23, 2021 14:41
--- NOTE | 2021-04-23 10:16 | NUR ---
KENZIE following. Discussed with RN, Dr. Swift requested SW transfer pt to for Urology. KENZIE initiated inpatient transfer - [facility] denied due to bed availablilty. Dr. Swift plans on discharging pt home over the weekend. KENZIE will continue to follow.
[2021-04-23 10:56] VITALS: BP 100/65
--- NOTE | 2021-04-23 14:32 | PDOC ---
[employer] [facility] PROGRESS NOTE Date of Service DOS: DATE: 04/23/21 TIME: 14:28 Chief Complaint Chief Complaint Acute right pyelonephritis Multiple diverticuli the urinary bladder 2 large cystic stones measuring up to 4 cm measured in the primary bladder History of dystonic bladder Absent left kidney, congenital Hepatic steatosis Continue with empiric IV antibiotics with transition to p.o. cefdinir at time of discharge Continue Ribera and transition to self-catheterization daily upon discharge Anticipate discharge in next 24 hours History of Present Illness History of Present Illness 40-year-old female who presented to the ER today with abdominal pain. She came in by EMS. She rates her symptoms at 9/10 that has been occurring for several days. She took some skyn-wpn-kyvgjey medicines, but that did not help. While in the ER, we noticed that she has got pyelonephritis. She also has 1 kidney and some abnormal imaging on her bladder/uterus. It appears that she has got diverticula. She also states she self-catheterizes herself. The patient has been admitted for further evaluation. 04/22/2021 No acute events overnight. Pain is a little bit better stated by the patient. She did have some questions regarding the giovanna that her left with her that was okay. Is explained to her that this is likely related to her clips from her previous surgery. However, after reviewing the CT imaging it was unclear whether the patient did have a hysterectomy because the results did show that there was cystic masses what appears to be in the area where the uterus is and also some diverticuli in the bladder that might be related to her presentation. Regardless, we are continue with empiric IV antibiotics and awaiting urine cultures. We will continue to watch closely and follow-up with sensitivities and speciation's of the results. 04/23/2021 No acute events overnight. Afebrile in the last 24 hours. T-max of 100. Ribera placed this morning for decompression. Pain is improved. Patient's chart, labs, images were reviewed and discussed with RN In addition to my E/M visit, advance care planning done with A total time of 20 minutes was spent from 1015 to 1035 face to face in discussion with the patient and sister over the phone regarding patient's goals of care, CODE STATUS. Discussed that patient needs to follow-up closely as an outpatient for her cystic stones in her bladder diverticuli. She will also need to continue with self-catheterization on a daily basis. Until she is seen at the urology service. Vitals/I&O Vitals/I&O: Vital Signs Date Time Temp Pulse Resp B/P (MAP) Pulse Ox O2 Delivery O2 Flow Rate FiO2 04/23/21 10:56 99.5 90 24 100/65 (77) 95 Room Air 99.5 Physical Exam General: Alert, Oriented X3, Cooperative Heart: Normal S1, Normal S2, Other (tachy) Abdomen: Soft, Other (mild ttp RLQ) Extremities: No clubbing, No cyanosis Skin: No rashes, No breakdown Assessment and Plan Assessmemt and Plan Problems Medical Problems: (1) Pyelonephritis Status: Acute Comment Review of Relevant I have reviewed the following items meredith (where applicable) has been applied. Medications: Current Medications Medications (Trade) Dose Ordered Sig/Maura Route PRN Reason Start Time Stop Time Status Last Admin Dose Admin Lactobacillus Rhamnosus (Culturelle) 1 cap BID PO 04/22/21 21:00 04/23/21 09:06 Justifications for Admission Other Justification PAULINE ALFONSO MD Apr 23, 2021 14:32
[2021-04-23 15:19] VITALS: BP 99/68
[2021-04-23 19:00] VITALS: BP 114/71
[2021-04-23] MEDS: oxyCODONE/APAP 5/325 1 TAB TABLET PO PRN (19:12)
[2021-04-23 23:00] VITALS: BP 110/68
[2021-04-24 03:00] VITALS: BP 125/74
[2021-04-24] MEDS: IV NORMAL SALINE 1000ML BAG 1,000 ML IV SCH (05:13)
[2021-04-24 07:00] VITALS: BP 110/73
[2021-04-24 07:39] VITALS: BP 110/73
[2021-04-24] MEDS ORDERED: CEFD300C PO (08:08)
[2021-04-24] MEDS ORDERED: OXYC-325 PO (08:09)
[2021-04-24] MEDS: oxyCODONE/APAP 5/325 1 TAB TABLET PO PRN (08:11)
[2021-04-24] MEDS: ONDANSETRON PF 4 MG/2 ML VIAL. IVP PRN (08:12)
[2021-04-24] MEDS: cefTRIAXone IV Push 1 GM VIAL. IVP SCH (08:12)
[2021-04-24] MEDS: LACTOBACILLUS RHAMNOSUS GG 1 CAPSULE. PO SCH (08:12)
--- NOTE | 2021-04-24 08:13 | DISCH ---
DISCHARGE INSTRUCTIONS Condition on Discharge Condition on Discharge: Stable Activity After Discharge Activity Instructions for Disc: Resume previous activity Exercise Instruction after Dis: Walk 15 min, 3 x per day Driving Instructions after Dis: Do not drive today Weight Bearing Status after Di: Full weight bearing Diet after Discharge Diet after Discharge: Cardiac Checks after Discharge Checks after discharge: Weigh Yourself Daily Follow-Up Follow up with: Primary care doctor within 2 weeks of discharge Follow Up With: Urologist as soon as possible Treatment/Equipment after DC Comment: Self-catheterization 4 times/day and as needed PAULINE ALFONSO MD Apr 24, 2021 08:13
[2021-04-24 11:00] VITALS: BP 96/49
--- NOTE | 2021-04-24 12:16 | NUR ---
Pt. discharged to home with straight cath kits, verbalized understanding of discharge instructions. LAUREN Arreaga assisted with instructions in Romanian.
== END 2021-04-24 12:17 | disposition home or self-care (01) | DRG 690 ==
LOC: ER 05:48 → ED HOLD 10:05 → 4 NORTH 18:33
PROVIDERS: ADMIT Internal Medicine; ATTEND Internal Medicine
DX: N10 Acute pyelonephritis (principal); N34.2 Other urethritis; K57.90 Diverticulosis of intestine, part unspecified, without perforation or abscess without bleeding; K76.0 Fatty (change of) liver, not elsewhere classified; N21.0 Calculus in bladder; Z90.710 Acquired absence of both cervix and uterus; Z20.822 Contact with and (suspected) exposure to COVID-19; N28.89 Other specified disorders of kidney and ureter; Z79.899 Other long term (current) drug therapy
CPT/HCPCS: 36415; 74177; 80048; 80053; 81001; 81025; 83605; 83690; 83735; 84100; 85007; 85025; 87040; 87077; 87086; 87186; 96361; 96374; 96375; J0696; J2405; J3010; J7030; Q9967; U0003; U0005; 99285-25; G0378